=== PATIENT | male | born 1955 | race Caucasian/White ===

== ENCOUNTER 2017-11-19 09:28 | Inpatient (IN) | payer OTHER ==
[~2017-11-19] VITALS: Ht 190.5 cm; Wt 112.0 kg
[2017-11-23] MEDS ORDERED: METFORMIN HCL500 MG PO (09:36)
[2017-12-01] MEDS ORDERED: METFORMIN HCL500 MG PO (11:59)
[2017-12-01] MEDS ORDERED: Glucophage PO (12:22)
[2017-12-01] MEDS ORDERED: CLOTRIMAZOLE15 GM TOP (12:22)
[2017-12-01] MEDS ORDERED: B Complex CAPSULE PO (12:22)
[2017-12-01] MEDS ORDERED: FUROSEMIDE20 MG PO (12:22)
[2017-12-01] MEDS ORDERED: FAMOTIDINE20 MG PO (12:22)
[2017-12-01] MEDS ORDERED: AMOX1TAB5 PO (12:34)
== END 2017-12-01 16:11 | disposition home health service (06) | DRG 300 ==
LOC: MEDI 09:28
PROC: B44HZZZ Ultrasonography of Bilateral Lower Extremity Arteries (ICD-10-PCS; principal; 2017-11-19)
PROC: 02HV33Z Insertion of Infusion Device into Superior Vena Cava, Percutaneous Approach (ICD-10-PCS; 2017-11-19)
PROC: B54DZZZ Ultrasonography of Bilateral Lower Extremity Veins (ICD-10-PCS; 2017-11-19)
PROC: BW4GZZZ Ultrasonography of Pelvic Region (ICD-10-PCS; 2017-11-29)
DX: I87.2 Venous insufficiency (chronic) (peripheral) (principal); L97.321 Non-pressure chronic ulcer of left ankle limited to breakdown of skin; L03.116 Cellulitis of left lower limb; I27.29 Other secondary pulmonary hypertension; H91.8X3 Other specified hearing loss, bilateral; E11.622 Type 2 diabetes mellitus with other skin ulcer; E11.51 Type 2 diabetes mellitus with diabetic peripheral angiopathy without gangrene; E11.42 Type 2 diabetes mellitus with diabetic polyneuropathy; Z86.718 Personal history of other venous thrombosis and embolism; B96.5 Pseudomonas (aeruginosa) (mallei) (pseudomallei) as the cause of diseases classified elsewhere
CPT/HCPCS: 240

== ENCOUNTER 2018-12-07 07:24 | Emergency (ER) | payer OTHER ==
[~2018-12-07] VITALS: Ht 190.5 cm; Wt 117.9 kg
[~2018-12-07 07:24] MED LIST: AMOX1TAB5 PO; B Complex CAPSULE PO; CLOTRIMAZOLE15 GM TOP; FAMOTIDINE20 MG PO; FUROSEMIDE20 MG PO; Glucophage PO; METFORMIN HCL500 MG PO
== END 2018-12-07 09:51 | disposition home or self-care (01) ==
LOC: ER 07:24 → EDBD 07:38 → ER 09:51
DX: I83.009 Varicose veins of unspecified lower extremity with ulcer of unspecified site (principal); I87.2 Venous insufficiency (chronic) (peripheral)

== ENCOUNTER 2019-02-04 16:27 | Emergency (ER) | payer OTHER ==
[~2019-02-04] VITALS: Ht 190.5 cm; Wt 77.6 kg
== END 2019-02-04 22:33 | disposition home or self-care (01) ==
LOC: ER 16:27
DX: S06.2X1A Diffuse traumatic brain injury with loss of consciousness of 30 minutes or less, initial encounter (principal); S10.83XA Contusion of other specified part of neck, initial encounter; W18.09XA Striking against other object with subsequent fall, initial encounter; Y93.89 Activity, other specified; Y92.511 Restaurant or cafe as the place of occurrence of the external cause; Y99.8 Other external cause status

== ENCOUNTER 2019-02-24 18:47 | Inpatient (IN) | payer OTHER ==
[2019-03-10] MEDS ORDERED: INTESTINEX680 M1 PO (21:02)
[2019-03-10] MEDS ORDERED: [UNRECOGNIZED DRUG - OTHER] TOP (21:02)
[2019-03-10] MEDS ORDERED: NAPR500T14 PO (21:02)
[2019-03-10] MEDS ORDERED: DOXYCYCLINE HY100 M2 PO (21:02)
[2019-03-10] MEDS ORDERED: FERROUS SULFAT325 M1 PO (21:02)
[2019-03-10] MEDS ORDERED: LORATADINE10 MG PO (21:02)
[2019-03-10] MEDS ORDERED: FAMOTIDINE20 MG PO (21:02)
[2019-03-10] MEDS ORDERED: CEFADROXIL500 MG PO (21:02)
[2019-03-10] MEDS ORDERED: LUBRIDERM ADVA177 ML TP (21:02)
[2019-03-10] MEDS ORDERED: B Complex CAPSULE PO (21:02)
[2019-03-10] MEDS ORDERED: FOLIC ACID1 MG PO (21:02)
== END 2019-03-11 09:52 | disposition home or self-care (01) | DRG 638 ==
LOC: MEDJ 18:47
PROVIDERS: ADMIT Internal Medicine Cardiovascular Disease
PROC: BQ3HZZZ Magnetic Resonance Imaging (MRI) of Left Ankle (ICD-10-PCS; principal; 2019-02-25)
PROC: 8E0ZXY6 Isolation (ICD-10-PCS; 2019-02-25)
PROC: 02HV33Z Insertion of Infusion Device into Superior Vena Cava, Percutaneous Approach (ICD-10-PCS; 2019-02-26)
PROC: B54DZZZ Ultrasonography of Bilateral Lower Extremity Veins (ICD-10-PCS; 2019-03-02)
DX: E11.621 Type 2 diabetes mellitus with foot ulcer (principal); L97.422 Non-pressure chronic ulcer of left heel and midfoot with fat layer exposed; L97.412 Non-pressure chronic ulcer of right heel and midfoot with fat layer exposed; L40.8 Other psoriasis; I87.2 Venous insufficiency (chronic) (peripheral); B95.2 Enterococcus as the cause of diseases classified elsewhere; B95.1 Streptococcus, group B, as the cause of diseases classified elsewhere; B95.7 Other staphylococcus as the cause of diseases classified elsewhere; B96.1 Klebsiella pneumoniae [K. pneumoniae] as the cause of diseases classified elsewhere; E11.65 Type 2 diabetes mellitus with hyperglycemia; Z79.4 Long term (current) use of insulin

== ENCOUNTER 2020-02-08 05:18 | Emergency (ER) | payer OTHER ==
[~2020-02-08] VITALS: Ht 190.5 cm; Wt 112.0 kg
[~2020-02-08 05:18] MED LIST changes: +CEFADROXIL500 MG PO; +DOXYCYCLINE HY100 M2 PO; +FERROUS SULFAT325 M1 PO; +FOLIC ACID1 MG PO; +INTESTINEX680 M1 PO; +LORATADINE10 MG PO; +LUBRIDERM ADVA177 ML TP; +NAPR500T14 PO; +[UNRECOGNIZED DRUG - OTHER] TOP
== END 2020-02-08 14:09 | disposition home or self-care (01) ==
LOC: ER 05:18
DX: R10.84 Generalized abdominal pain (principal)

== ENCOUNTER 2020-03-29 16:46 | Emergency (ER) | payer OTHER ==
[~2020-03-29] VITALS: Ht 190.5 cm; Wt 115.2 kg
[2020-03-29] MEDS ORDERED: ELIQUIS5 MG (17:09)
== END 2020-03-30 17:59 | disposition home or self-care (01) ==
LOC: ER 16:46
DX: M79.662 Pain in left lower leg (principal); M79.661 Pain in right lower leg; E11.9 Type 2 diabetes mellitus without complications; M54.41 Lumbago with sciatica, right side

== ENCOUNTER 2020-05-22 16:15 | Emergency (ER) | payer OTHER ==
[~2020-05-22] VITALS: Ht 190.5 cm; Wt 112.0 kg
[~2020-05-22 16:15] MED LIST changes: +ELIQUIS5 MG
== END 2020-05-22 21:34 | disposition home or self-care (01) ==
LOC: ER 16:15
DX: M25.561 Pain in right knee (principal); M13.861 Other specified arthritis, right knee

== ENCOUNTER 2024-06-19 10:35 | Inpatient (IN) | payer OTHER ==
[~2024-06-19] VITALS: Ht 182.9 cm; Wt 124.3 kg
[2024-06-19 12:20] LABS: URINE APPEARANCE Clear; URINE BILIRRUBIN Negative (NEGATIVE); URINE BLOOD Negative; URINE COLOR Dark Yellow; URINE GLUCOSE Negative (NEGATIVE); URINE KETONE Trace (NEGATIVE); URINE LEUKOCYTE Negative; URINE NITRATE Negative; URINE PROTEIN Trace (NEGATIVE)
[2024-06-19 12:23] LABS: URINE BACTERIA 201.9 uL (0.0-1933); URINE CAST 6.03 uL (0.0-1.40); URINE EPITHELIAL CELLS 3.1 uL (0.0-38.8); URINE WBC 2.8 uL (0.0-23.2)
[2024-06-19 12:44] LABS: ALBUMIN 3.9 gm/dL (3.4-5.0); BILIRUBIN TOTAL 0.41 mg/dL (0.3-1.2); CALCIUM 9.7 mg/dL (8.5-10.1); CREATININE SERUM 1.56 mg/dL (0.70-1.30); GFR 44.61; GLOBULINA 4.8 G/DL (2.4-3.5); POTASSIUM 4.19 mEq/L (3.5-5.1); TOTAL PROTEIN 8.7 gm/dL (6.4-8.2)
[2024-06-19 12:46] LABS: C-REACTIVE PROTEIN 0.42 MG/DL (0.00-0.29)
[2024-06-19 12:52] LABS: INR 1.02; PARTIAL THROMBOPLASTIN TIME 25.1 SECONDS (22.0-34.0); PROTHROMBIN TIME 11.1 SECONDS (9.0-11.5)
[2024-06-19 12:56] LABS: HEMATOCRIT 37.8 % (39.0-48.0); HEMOGLOBIN 12.6 g/dL (13-16.00); MEAN CELL VOLUME 84.9 fL (80.0-100.00); MEAN CORPUSCULAR HEMOGLOBIN 28.4 pg (27.00-32.0); MEAN CORPUSCULAR HGB CONC 33.5 g/dl (32.0-36.0); PLATELET COUNT 207 K/uL (150-450); RED BLOOD COUNT 4.45 M/uL (4.00-6.00); RED CELL DISTRIBUTION WIDTH 16.4 % (11.5-14.5)
[2024-06-19 13:11] LABS: ERYTHROCYTE SEDIMENTATION RATE 77 mm/hr
[2024-06-19] MEDS ORDERED: TRAMADOL HCL 50 MG TABLET PO PRN (16:30)
[2024-06-19] MEDS ORDERED: ENOXAPARIN SODIUM 40 MG/0.4 ML SYRINGE SUBCUTANEO SCH (16:35)
[2024-06-19] MEDS ORDERED: FAMOtidine 20 MG TABLET PO SCH (17:00)
[2024-06-19] MEDS ORDERED: LINEZOLID IN DEXTROSE 5% 300 ML IV SCH (17:00)
[2024-06-19] MEDS ORDERED: ENOXAPARIN SODIUM 40 MG/0.4 ML SYRINGE SUBCUTANEO ONE (17:00)
[2024-06-19] MEDS ORDERED: GABAPENTIN 400 MG CAPSULE PO SCH (17:00)
[2024-06-19] MEDS ORDERED: FAMOTIDINE/PF 20 MG/2 ML VIAL ONE (17:00)
[2024-06-20] VITALS: BP 123/70; O2SAT 97
[2024-06-20] MEDS ORDERED: SODIUM HYPOCHLORITE 1OZ TOP SCH (09:00)
[2024-06-20 09:11] VITALS: BP 153/70; O2SAT 97
[2024-06-20] MEDS ORDERED: PIPERACILLIN/TAZOBACTAM SODIUM 4.5 GM in 0.9 % SODIUM CHLORIDE 100 ML IV NR (17:00)
[2024-06-20 20:54] VITALS: BP 158/72; O2SAT 0
[2024-06-20 21:09] VITALS: BP 115/60
[2024-06-21] MEDS ORDERED: PIPERACILLIN/TAZOBACTAM SODIUM 3.375 GM VIAL IV SCH (01:00)
[2024-06-21 01:14] VITALS: BP 118/69; O2SAT 94
[2024-06-21 08:00] VITALS: BP 133/75; O2SAT 99
[2024-06-21] MEDS ORDERED: MetFORMIN HCL 1000 MG TABLET PO SCH (09:00)
[2024-06-21] MEDS ORDERED: CLOPIDOGREL BISULFATE 75 MG TABLET PO SCH (09:00)
[2024-06-21] MEDS ORDERED: GABAPENTIN 800 MG TABLET PO SCH (17:00)
[2024-06-21] MEDS ORDERED: GUAIFENESIN 200 MG/10 ML BLIST.PACK PO SCH (17:40)
[2024-06-21 18:35] VITALS: BP 133/70; O2SAT 97
[2024-06-21] MEDS ORDERED: LINEZOLID 600 MG TABLET PO SCH (21:00)
[2024-06-22 03:05] VITALS: BP 123/72
[2024-06-22 09:14] VITALS: BP 121/73; O2SAT 99
[2024-06-22] MEDS ORDERED: TRAMADOL HCL 50 MG TABLET PO SCH (12:00)
[2024-06-22] MEDS ORDERED: DIPHENHYDRAMINE HCL 50 MG/ML VIAL 1ML IV STA (16:42)
[2024-06-22] MEDS ORDERED: EMOLLIENTS 6 OZ BOTTLE TOP SCH (17:14)
[2024-06-22 18:10] VITALS: BP 140/73; O2SAT 98
[2024-06-22] MEDS ORDERED: DIPHENHYDRAMINE HCL 50 MG/ML VIAL 1ML IV PRN (19:15)
[2024-06-22 22:07] LABS: URINE APPEARANCE Clear; URINE BILIRRUBIN Negative (NEGATIVE); URINE BLOOD Negative; URINE COLOR Yellow; URINE GLUCOSE Negative (NEGATIVE); URINE KETONE Negative (NEGATIVE); URINE LEUKOCYTE Negative; URINE NITRATE Negative; URINE PROTEIN Negative (NEGATIVE); URINE UROBILINOGEN 0.2 E.U./dl
[2024-06-22 22:11] LABS: URINE BACTERIA 4.8 uL (0.0-1933); URINE EPITHELIAL CELLS 0.3 uL (0.0-38.8); URINE RBC 1.7 uL (0.0-20.8); URINE WBC 0.6 uL (0.0-23.2)
[2024-06-23 00:19] VITALS: BP 126/64
[2024-06-23 06:21] LABS: HEMATOCRIT 34.8 % (39.0-48.0); HEMOGLOBIN 11.9 g/dL (13-16.00); MEAN CELL VOLUME 82.8 fL (80.0-100.00); MEAN CORPUSCULAR HEMOGLOBIN 28.4 pg (27.00-32.0); MEAN CORPUSCULAR HGB CONC 34.3 g/dl (32.0-36.0); PLATELET COUNT 178 K/uL (150-450); RED BLOOD COUNT 4.21 M/uL (4.00-6.00); RED CELL DISTRIBUTION WIDTH 16.7 % (11.5-14.5)
[2024-06-23 06:47] LABS: ALBUMIN 3.6 gm/dL (3.4-5.0); BILIRUBIN TOTAL 0.35 mg/dL (0.3-1.2); CALCIUM 9.2 mg/dL (8.5-10.1); CREATININE SERUM 1.22 mg/dL (0.70-1.30); GFR 59.25; POTASSIUM 4.59 mEq/L (3.5-5.1); TOTAL PROTEIN 7.6 gm/dL (6.4-8.2)
[2024-06-23 09:37] VITALS: BP 126/79; O2SAT 98
[2024-06-23] MEDS ORDERED: PIPERACILLIN/TAZOBACTAM SODIUM 3.375 GM VIAL IV SCH (17:00)
[2024-06-23] MEDS ORDERED: CEFEPIME HCL 2,000 MG VIAL IV SCH (17:00)
[2024-06-23 17:29] VITALS: BP 144/70; O2SAT 98
[2024-06-24 02:20] VITALS: BP 111/67; O2SAT 95
[2024-06-24] MEDS ORDERED: DIPHENHYDRAMINE HCL 50 MG/ML VIAL 1ML IV SCH (05:00)
[2024-06-24] MEDS ORDERED: IRON FUM,PS/FOLIC/BCOMP,C NO.9 1 CAP CAPSULE PO SCH (09:00)
[2024-06-24] MEDS ORDERED: ERTAPENEM SODIUM 1,000 MG VIAL IV SCH (09:00)
[2024-06-24] MEDS ORDERED: LACTOBACILLUS ACIDOPHILUS 1 CAP CAP PO SCH (09:00)
[2024-06-24 16:00] VITALS: BP 123/68; O2SAT 96
[2024-06-25 02:33] VITALS: BP 113/57; O2SAT 95
[2024-06-25 09:30] VITALS: BP 157/90; O2SAT 98
[2024-06-25 18:04] VITALS: BP 136/72; O2SAT 94
[2024-06-26 02:00] VITALS: BP 124/72; O2SAT 96
[2024-06-26 11:39] VITALS: BP 149/65; O2SAT 95
[2024-06-26 18:16] VITALS: BP 146/80; O2SAT 97
[2024-06-27 03:43] VITALS: BP 145/88; O2SAT 99
[2024-06-27 09:41] VITALS: BP 141/83; O2SAT 97
[2024-06-27] MEDS ORDERED: TRAMADOL HCL 50 MG TABLET PO PRN (13:15)
[2024-06-27 17:41] VITALS: BP 141/86; O2SAT 100
[2024-06-28 01:25] VITALS: BP 133/69; O2SAT 94
[2024-06-28 09:43] VITALS: BP 139/72
[2024-06-28 16:00] VITALS: BP 131/75; O2SAT 97
[2024-06-28] MEDS ORDERED: GERI-TUSSI100 MG/5 M PO (18:08)
[2024-06-28] MEDS ORDERED: TRAMADOL HCL50 MG PO (18:08)
[2024-06-28] MEDS ORDERED: CLOPIDOGREL BIS75 MG PO (18:08)
[2024-06-28] MEDS ORDERED: LUBRIDERM DAIL177 ML TOP (18:08)
[2024-06-28] MEDS ORDERED: METFORMIN HCL1000 MG PO (18:08)
[2024-06-28] MEDS ORDERED: GABAPENTIN800 MG PO (18:08)
[2024-06-28] MEDS ORDERED: INTEGRA PLUS C1 EACH PO (18:08)
[2024-06-28] MEDS ORDERED: LINEZOLID600 MG PO (18:17)
[2024-06-28] MEDS ORDERED: CEFUROXIME500 MG PO (18:17)
== END 2024-06-28 18:37 | disposition home or self-care (01) | DRG 300 ==
LOC: ER 10:36 → MEDI 16:58 → MEDJ 16:58 → MEDI 17:10
PROVIDERS: General Practice; ADMIT Internal Medicine Cardiovascular Disease; ATTEND Internal Medicine Cardiovascular Disease
PROC: B54DZZZ Ultrasonography of Bilateral Lower Extremity Veins (ICD-10-PCS; principal; 2024-06-19)
PROC: 02HV33Z Insertion of Infusion Device into Superior Vena Cava, Percutaneous Approach (ICD-10-PCS; 2024-06-20)
PROC: B246ZZZ Ultrasonography of Right and Left Heart (ICD-10-PCS; 2024-06-23)
PROC: 0JBN3ZZ Excision of Right Lower Leg Subcutaneous Tissue and Fascia, Percutaneous Approach (ICD-10-PCS; 2024-06-28)
PROC: 0JBP3ZZ Excision of Left Lower Leg Subcutaneous Tissue and Fascia, Percutaneous Approach (ICD-10-PCS; 2024-06-28)
DX: I87.2 Venous insufficiency (chronic) (peripheral) (principal); L97.321 Non-pressure chronic ulcer of left ankle limited to breakdown of skin; I83.023 Varicose veins of left lower extremity with ulcer of ankle; E11.9 Type 2 diabetes mellitus without complications